=== PATIENT | male | born 1980 | race Caucasian/White ===

== ENCOUNTER 2020-07-06 13:56 | Observation (INO) | payer BC ==
[2020-07-06] MEDS ORDERED: NITROGLYCERIN OINT 1 INCH/GM PACKET TOPICAL STA (14:29)
[2020-07-06] MEDS ORDERED: ASPIRIN 81 MG PO STA (14:29)
--- NOTE | 2020-07-06 14:32 | ED ---
General Adult HPI - General Chief complaint: Chest Pain Stated complaint: Chest pain Time Seen by Provider: 07/06/20 14:13 Source: patient, RN notes reviewed Mode of arrival: ambulatory Limitations: no limitations - History of Present Illness Initial comments: Patient is a pleasant 39-year-old male presenting to the emergency department complaints of chest discomfort. Onset of symptoms was several days ago. Symptoms have been somewhat waxing and waning. Discomfort is exertional. Patient also has some mild exertional dyspnea. No nausea. No diaphoresis. Discomfort feels like pressure or tightness in the chest without radiation. No history of similar symptoms previously. No leg pain or leg swelling. - Related Data Home Medications Medication Instructions Recorded Confirmed Citalopram Hydrobromide [CeleXA] 40 mg PO DAILY 07/06/20 07/06/20 Lisinopril [Prinivil] 10 mg PO DAILY 07/06/20 07/06/20 Omeprazole 20 mg PO AC-BRKFST 07/06/20 07/06/20 metFORMIN HCL [Glucophage] 500 mg PO AC-BID 07/06/20 07/06/20 Allergies Allergy/AdvReac Type Severity Reaction Status Date / Time No Known Allergies Allergy Verified 07/06/20 15:19 Review of Systems ROS Statement: Those systems with pertinent positive or pertinent negative responses have been documented in the HPI. ROS Other: All systems not noted in ROS Statement are negative. Constitutional: Denies: fever Eyes: Denies: eye pain ENT: Denies: ear pain Respiratory: Reports: as per HPI. Denies: cough Cardiovascular: Reports: as per HPI, chest pain Endocrine: Reports: fatigue Gastrointestinal: Denies: abdominal pain Genitourinary: Denies: dysuria Musculoskeletal: Denies: back pain Skin: Denies: rash Neurological: Denies: weakness Past Medical History Past Medical History: Hypertension Additional Past Medical History / Comment(s): pre diabetic. History of Any Multi-Drug Resistant Organisms: None Reported Additional Past Surgical History / Comment(s): umbilical hernia. Past Psychological History: Anxiety Smoking Status: Never smoker Past Alcohol Use History: None Reported Past Drug Use History: None Reported General Exam Limitations: no limitations General appearance: alert, in no apparent distress Head exam: Present: normocephalic Eye exam: Present: normal appearance Neck exam: Present: normal inspection Respiratory exam: Present: normal lung sounds bilaterally. Absent: chest wall tenderness Cardiovascular Exam: Present: regular rate, normal rhythm Expanded Peripheral pulses: 2+: Radial (R), Radial (L), Posterior Tibialis (R), Posterior Tibialis (L) GI/Abdominal exam: Present: soft. Absent: tenderness Extremities exam: Present: normal inspection. Absent: pedal edema, calf tenderness Neurological exam: Present: alert Psychiatric exam: Present: normal affect, normal mood Skin exam: Present: normal color Course Vital Signs 07/06/20 14:01 Temperature 98.3 F Pulse Rate 83 Respiratory 18 Rate Blood Pressure 148/94 O2 Sat by Pulse 98 Oximetry EKG Findings - EKG Comments: EKG Findings:: Normal sinus rhythm with a rate of 61. MT 122. QRS 94. QT 402. QTC 404. Normal axis. Normal QRS. No acute ST change. Medical Decision Making - Medical Decision Making Patient reevaluated and symptom-free following a glycerin. Patient and family updated on results and plan. Case was discussed with Dr. Cody, who will admit covering hospital call. - Lab Data Result diagrams: 07/06/20 14:46 07/06/20 14:46 Lab Results 07/06/20 07/06/20 07/06/20 Range/Units 14:46 14:46 14:46 WBC 9.2 (3.8-10.6) k/uL RBC 5.19 (4.30-5.90) m/uL Hgb 16.3 (13.0-17.5) gm/dL Hct 47.0 (39.0-53.0) % MCV 90.7 (80.0-100.0) fL MCH 31.4 (25.0-35.0) pg MCHC 34.7 (31.0-37.0) g/dL RDW 12.4 (11.5-15.5) % Plt Count 289 (150-450) k/uL MPV 6.8 Neutrophils % 82 % Lymphocytes % 12 % Monocytes % 5 % Eosinophils % 0 % Basophils % 0 % Neutrophils # 7.6 (1.3-7.7) k/uL Lymphocytes # 1.1 (1.0-4.8) k/uL Monocytes # 0.4 (0-1.0) k/uL Eosinophils # 0.0 (0-0.7) k/uL Basophils # 0.0 (0-0.2) k/uL PT 10.0 (9.0-12.0) sec INR 0.9 (<1.2) APTT 21.9 L (22.0-30.0) sec D-Dimer 0.26 (<0.60) mg/L FEU Sodium 140 (137-145) mmol/L Potassium 4.2 (3.5-5.1) mmol/L Chloride 101 (98-107) mmol/L Carbon Dioxide 28 (22-30) mmol/L Anion Gap 11 mmol/L BUN 9 (9-20) mg/dL Creatinine 0.77 (0.66-1.25) mg/dL Est GFR (CKD-EPI)AfAm >90 (>60 ml/min/1.73 sqM) Est GFR (CKD-EPI)NonAf >90 (>60 ml/min/1.73 sqM) Glucose 109 H (74-99) mg/dL Calcium 9.9 (8.4-10.2) mg/dL Magnesium 1.8 (1.6-2.3) mg/dL Total Bilirubin 0.6 (0.2-1.3) mg/dL AST 40 (17-59) U/L ALT 69 H (4-49) U/L Alkaline Phosphatase 59 (38-126) U/L Troponin I (0.000-0.034) ng/mL NT-Pro-B Natriuret Pep pg/mL Total Protein 7.9 (6.3-8.2) g/dL Albumin 5.0 (3.5-5.0) g/dL 07/06/20 07/06/20 Range/Units 14:46 14:46 WBC (3.8-10.6) k/uL RBC (4.30-5.90) m/uL Hgb (13.0-17.5) gm/dL Hct (39.0-53.0) % MCV (80.0-100.0) fL MCH (25.0-35.0) pg MCHC (31.0-37.0) g/dL RDW (11.5-15.5) % Plt Count (150-450) k/uL MPV Neutrophils % % Lymphocytes % % Monocytes % % Eosinophils % % Basophils % % Neutrophils # (1.3-7.7) k/uL Lymphocytes # (1.0-4.8) k/uL Monocytes # (0-1.0) k/uL Eosinophils # (0-0.7) k/uL Basophils # (0-0.2) k/uL PT (9.0-12.0) sec INR (<1.2) APTT (22.0-30.0) sec D-Dimer (<0.60) mg/L FEU Sodium (137-145) mmol/L Potassium (3.5-5.1) mmol/L Chloride (98-107) mmol/L Carbon Dioxide (22-30) mmol/L Anion Gap mmol/L BUN (9-20) mg/dL Creatinine (0.66-1.25) mg/dL Est GFR (CKD-EPI)AfAm (>60 ml/min/1.73 sqM) Est GFR (CKD-EPI)NonAf (>60 ml/min/1.73 sqM) Glucose (74-99) mg/dL Calcium (8.4-10.2) mg/dL Magnesium (1.6-2.3) mg/dL Total Bilirubin (0.2-1.3) mg/dL AST (17-59) U/L ALT (4-49) U/L Alkaline Phosphatase (38-126) U/L Troponin I <0.012 (0.000-0.034) ng/mL NT-Pro-B Natriuret Pep 69 pg/mL Total Protein (6.3-8.2) g/dL Albumin (3.5-5.0) g/dL - Radiology Data Radiology results: image reviewed Disposition Clinical Impression: Chest pain Disposition: ADMITTED IP TO THIS [facility] Is patient prescribed a controlled substance at d/c from ED?: No Referrals: Nonstaff,Physician [REFERRING] - 1-2 days Decision Time: 16:15
[2020-07-06 15:16] LABS: Basophils % (A) 0 %; Eosinophils % (A) 0 %; HGB 16.3 gm/dL (13.0-17.5); Lymphocytes # (A) 1.1 k/uL (1.0-4.8); Lymphocytes % (A) 12 %; MCH 31.4 pg (25.0-35.0); MCHC 34.7 g/dL (31.0-37.0); MCV 90.7 fL (80.0-100.0); Mean Platelet Volume 6.8; Monocytes # (A) 0.4 k/uL (0-1.0); Monocytes % (A) 5 %; Neutrophils # (A) 7.6 k/uL (1.3-7.7); Neutrophils % (A) 82 %; Platelet Count 289 k/uL (150-450); RBC 5.19 m/uL (4.30-5.90); RDW 12.4 % (11.5-15.5); WBC 9.2 k/uL (3.8-10.6)
[2020-07-06 15:29] LABS: ALT 69 U/L (4-49); AST 40 U/L (17-59); African American GFR (CKD) >90 (>60 ml/min/1.73 sqM); Alkaline Phosphatase 59 U/L (38-126); Anion Gap 11 mmol/L; Blood Urea Nitrogen 9 mg/dL (9-20); Calcium 9.9 mg/dL (8.4-10.2); Carbon Dioxide 28 mmol/L (22-30); Chloride 101 mmol/L (98-107); Glucose 109 mg/dL (74-99); Magnesium 1.8 mg/dL (1.6-2.3); Non-African American GFR(CKD) >90 (>60 ml/min/1.73 sqM); Potassium 4.2 mmol/L (3.5-5.1); Sodium 140 mmol/L (137-145); Total Bilirubin 0.6 mg/dL (0.2-1.3); Total Protein 7.9 g/dL (6.3-8.2)
[2020-07-06 15:45] LABS: D-Dimer 0.26 mg/L FEU (<0.60); INR 0.9 (<1.2); Partial Thromboplastin Time 21.9 sec (22.0-30.0)
[2020-07-06] MEDS ORDERED: NITROGLYCERIN SL TABS 0.4 MG TAB SUBLINGUAL PRN (16:15)
[2020-07-06 16:41] VITALS: RESP 16
--- NOTE | 2020-07-06 16:50 | XR ---
EXAMINATION TYPE: XR chest 2V DATE OF EXAM: 07/06/2020 CLINICAL HISTORY: Chest Pain. TECHNIQUE: Frontal and lateral view of the chest. COMPARISON: None FINDINGS: The cardiomediastinal silhouette is within normal limits for size. Pulmonary vasculature i s normal. There is no focal air space opacity. No pleural effusion. No pneumothorax seen. No acute d isplaced osseous fracture. IMPRESSION: No acute cardiopulmonary process.
[2020-07-06] MEDS ORDERED: MORPHINE SULFATE 4 MG/ML SYRINGE IVP STA (17:04)
[2020-07-06 20:41] LABS: Glucose,Whole Blood 121 mg/dL (75-99)
[2020-07-06] MEDS: NITROGLYCERIN OINT 1 INCH/GM PACKET TOPICAL SCH (20:43)
[2020-07-06] MEDS: ACETAMINOPHEN TAB 325 MG TAB PO PRN (20:43)
--- NOTE | 2020-07-06 23:18 | P.HPIM ---
History of Present Illness This is a pleasant 39 years old male with past medical history of hypertension. Presents because of chest pain of 3 days' duration, chest pain is central nonradiating although sometimes he reports going to the left side, his about 3- 4/10 in severity, patient noticed improvement in his chest pain with deep breathing, felt like pressure and tightness associated with little, but no phlegm, no dyspnea. Patient feels lightheadedness and little fatigue Also he has sinus congestions with little headache in the morning, He denies smoking, alcohol or illicit tracts but he chews tobacco Hemodynamically stable, labs reviewed. D-dimer -0.06 Patient is started on aspirin 325 mg and cardiology team consult Past Medical History Past Medical History: Hypertension Additional Past Medical History / Comment(s): pre diabetic. History of Any Multi-Drug Resistant Organisms: None Reported Additional Past Surgical History / Comment(s): umbilical hernia. Past Psychological History: Anxiety Smoking Status: Never smoker Past Alcohol Use History: None Reported Past Drug Use History: None Reported Medications and Allergies Home Medications Medication Instructions Recorded Confirmed Type Citalopram Hydrobromide [CeleXA] 40 mg PO DAILY 07/06/20 07/06/20 History Lisinopril [Prinivil] 10 mg PO DAILY 07/06/20 07/06/20 History Omeprazole 20 mg PO AC-BRKFST 07/06/20 07/06/20 History metFORMIN HCL [Glucophage] 500 mg PO AC-BID 07/06/20 07/06/20 History Allergies Allergy/AdvReac Type Severity Reaction Status Date / Time No Known Allergies Allergy Verified 07/06/20 15:19 Physical Exam Vitals: Vital Signs Temp Pulse Resp BP Pulse Ox 07/06/20 16:40 80 16 142/87 98 07/06/20 14:01 98.3 F 83 18 148/94 98 Intake and Output 07/06/20 07/06/20 07/06/20 06:59 14:59 22:59 Other: Weight 97.522 kg Results CBC & Chem 7: 07/06/20 14:46 07/06/20 14:46 Labs: Abnormal Lab Results - Last 24 Hours (Table) 07/06/20 07/06/20 Range/Units 14:46 14:46 APTT 21.9 L (22.0-30.0) sec Glucose 109 H (74-99) mg/dL ALT 69 H (4-49) U/L Assessment and Plan Assessment: Chest pain, rule out cardiac causes Plan: This is a pleasant 39 years old male who presents with chest pain. We'll do serial troponins, cardiology consult. Continue with aspirin. Labs and medication were reviewed.. Continue same treatment. Continue with symptomatic treatment. Resume home medication. Monitor lytes and vitals. DVT and GI prophylaxis. Further recommendationsas per clinical course of the patient DVT prophylaxis: Subcutaneous heparin GI Prophylaxis: Pepcid Prognosis is guarded
[2020-07-07] MEDS: NITROGLYCERIN OINT 1 INCH/GM PACKET TOPICAL SCH (03:33)
[2020-07-07] MEDS: ACETAMINOPHEN TAB 325 MG TAB PO PRN (07:13)
[2020-07-07 07:19] LABS: Glucose,Whole Blood 128 mg/dL (75-99)
[2020-07-07] MEDS ORDERED: metFORMIN 500 MG TAB PO SCH (07:30)
[2020-07-07] MEDS: INSULIN ASPART (NovoLOG) 100 UNIT/ML VIAL SQ SCH ×2 (08:09→12:19)
[2020-07-07] MEDS ORDERED: CITALOPRAM HYDROBROMIDE 20 MG TAB PO SCH (09:00)
[2020-07-07] MEDS ORDERED: lisinopriL 10 MG TAB PO SCH (09:00)
[2020-07-07] MEDS ORDERED: ATORVASTATIN 40 MG TAB PO SCH (09:00)
[2020-07-07] MEDS ORDERED: ASPIRIN 325 MG TAB PO SCH (09:00)
--- NOTE | 2020-07-07 10:20 | P.CRDCN ---
History of Present Illness History of present illness: HISTORY OF PRESENTING ILLNESS This is a pleasant 39-year-old male past medical history significant for hypertension, diabetes mellitus, gastroesophageal reflux disease and depression. He denies prior history of coronary artery disease and does not follow in the office with a spiral weaver. We have been asked to see in consultation for chest pain. He states for the previous one week he has been experiencing episodes of chest discomfort in the midsternal and left precordial region. The discomfort is described as a tight squeezing sensation. The discomfort seems to be exacerbated it activity and is associated with mild shortness of breath. He also feels as though he has been more fatigued recently. He states the discomfort has not gotten too intense because every time it happens he stops what he is doing and rest and the symptoms improved. He initially presented to an urgent care and was sent to the ER for further evaluation. Since arriving at the emergency department he has had no further symptoms of chest discomfort however he has not been up and moving. DIAGNOSTICS EKG reveals sinus mechanism heart rate of [address] or T wave abnormalities noted. Telemetry tracings indicate sinus mechanism with no arrhythmia. Chest xray negative for acute cardiopulmonary process. Laboratory reviewed, cardiac enzymes negative 3, CBC unremarkable, d-dimer 0.26, sodium 140, potassium 4.2, creatinine 0.77, magnesium 1.8 and NT proBNP 69. Current cardiac medications include lisinopril 10 mg daily. REVIEW OF SYSTEMS At the time of my exam: CONSTITUTIONAL: Denies fever or chills. CARDIOVASCULAR: Denies chest pain, shortness of breath, orthopnea, PND or palpitations. RESPIRATORY: Denies cough. GASTROINTESTINAL: Denies abdominal pain, diarrhea, constipation, nausea or vomiting. MUSCULOSKELETAL: Denies myalgias. NEUROLOGIC: Denies numbness, tingling, headacbe or weakness. ENDOCRINE: Denies fatigue, weight change, polydipsia or polyurina. GENITOURINARY: Denies burning, hematuria or urgency with micturation. HEMATOLOGIC: Denies history of anemia or bleeding. PHYSICAL EXAMINATION Blood pressure 115/69 heart rate 62 afebrile and maintaining oxygen saturation on room air. CONSTITUTIONAL: No apparent distress. HEENT: Head is normocephalic. Pupils are equal, round. Sclerae anicteric. Mucous membranes of the mouth are moist. No JVD. No carotid bruit. CHEST EXAMINATION: Lungs are clear to auscultation. No chest wall tenderness is noted on palpation or with deep breathing. HEART EXAMINATION: Regular rate and rhythm. S1, S2 heard. No murmurs, gallops or rub. ABDOMEN: Soft, nontender. Positive bowel sounds. EXTREMITIES: 2+ peripheral pulses, no lower extremity edema and no calf tenderness. NEUROLOGIC EXAMINATION: Patient is awake, alert and oriented x3. ASSESSMENT Chest pain Unstable angina Hypertension Diabetes mellitus PLAN An acute coronary event has been ruled out. Given his history of diabetes, initiate atorvastatin 40 mg daily. Obtain 2D echocardiogram and doppler study to assess cardiac structure and function. Discussed both options of stress test vs catheterization in detail with the patient. He would prefer the less invasive stress test to start. This is reasonable given his normal EKG and cardiac enzymes. Perform stress echocardiogram to assess for stress induced ischemia. If abnormal we will consider coronary angiography. If testing is normal he can be discharged home to follow up with Dr. Bey in the office. Thank you kindly for this consultation. Nurse Practitioner note has been reviewed, I agree with a documented findings and plan of care. Patient was seen and examined. Past Medical History Past Medical History: Hypertension Additional Past Medical History / Comment(s): pre diabetic. History of Any Multi-Drug Resistant Organisms: None Reported Additional Past Surgical History / Comment(s): umbilical hernia. Past Psychological History: Anxiety Smoking Status: Never smoker Past Alcohol Use History: None Reported Past Drug Use History: None Reported Medications and Allergies Home Medications Medication Instructions Recorded Confirmed Type Citalopram Hydrobromide [CeleXA] 40 mg PO DAILY 07/06/20 07/06/20 History Lisinopril [Prinivil] 10 mg PO DAILY 07/06/20 07/06/20 History Omeprazole 20 mg PO AC-BRKFST 07/06/20 07/06/20 History metFORMIN HCL [Glucophage] 500 mg PO AC-BID 07/06/20 07/06/20 History Allergies Allergy/AdvReac Type Severity Reaction Status Date / Time No Known Allergies Allergy Verified 07/06/20 15:19 Physical Exam Vitals: Vital Signs Temp Pulse Pulse Resp BP BP Pulse Ox 07/07/20 06:50 98.2 F 62 16 115/69 95 07/07/20 02:00 60 07/07/20 01:44 98.0 F 60 118/69 97 07/06/20 20:00 98.5 F 58 L 16 131/72 97 07/06/20 19:20 58 L 07/06/20 19:08 98.1 F 07/06/20 16:50 58 L 16 109/73 95 07/06/20 16:40 70 24 111/75 97 07/06/20 16:30 59 L 11 L 116/81 95 07/06/20 16:20 59 L 14 116/81 96 07/06/20 16:10 58 L 12 119/77 96 07/06/20 16:00 63 15 124/83 96 07/06/20 15:50 64 11 L 124/83 96 07/06/20 15:40 59 L 10 L 119/75 96 07/06/20 15:30 61 13 133/87 95 07/06/20 15:20 66 18 133/87 97 07/06/20 14:43 19 07/06/20 14:01 98.3 F 83 18 148/94 98 Intake and Output 07/06/20 07/07/20 07/07/20 22:59 06:59 14:59 Intake Total 0 Balance 0 Intake: Oral 0 Other: Voiding Method Toilet Toilet Toilet # Voids 1 Weight 97.522 kg Results 07/06/20 14:46 07/06/20 14:46 Cardiac Enzymes 07/06/20 07/06/20 07/06/20 Range/Units 14:46 14:46 19:10 AST 40 (17-59) U/L Troponin I <0.012 <0.012 (0.000-0.034) ng/mL 07/06/20 Range/Units 22:36 AST (17-59) U/L Troponin I <0.012 (0.000-0.034) ng/mL Coagulation 07/06/20 Range/Units 14:46 PT 10.0 (9.0-12.0) sec APTT 21.9 L (22.0-30.0) sec CBC 07/06/20 Range/Units 14:46 WBC 9.2 (3.8-10.6) k/uL RBC 5.19 (4.30-5.90) m/uL Hgb 16.3 (13.0-17.5) gm/dL Hct 47.0 (39.0-53.0) % Plt Count 289 (150-450) k/uL Comprehensive Metabolic Panel 07/06/20 Range/Units 14:46 Sodium 140 (137-145) mmol/L Potassium 4.2 (3.5-5.1) mmol/L Chloride 101 (98-107) mmol/L Carbon Dioxide 28 (22-30) mmol/L BUN 9 (9-20) mg/dL Creatinine 0.77 (0.66-1.25) mg/dL Glucose 109 H (74-99) mg/dL Calcium 9.9 (8.4-10.2) mg/dL AST 40 (17-59) U/L ALT 69 H (4-49) U/L Alkaline Phosphatase 59 (38-126) U/L Total Protein 7.9 (6.3-8.2) g/dL Albumin 5.0 (3.5-5.0) g/dL Current Medications Generic Name Dose Route Start Last Admin Trade Name Freq PRN Reason Stop Dose Admin Acetaminophen 650 mg 07/06/20 16:15 07/07/20 07:13 Acetaminophen Tab 325 Mg Tab PO 650 mg Q4HR PRN Administration Mild Pain Aspirin 325 mg 07/07/20 09:00 Aspirin 325 Mg Tab PO DAILY [facility] Citalopram Hydrobromide 40 mg 07/07/20 09:00 Citalopram Hydrobromide 20 Mg Tab PO DAILY [facility] Insulin Aspart 0 unit 07/07/20 07:30 Insulin Aspart (Novolog) 100 Unit/Ml Vial SQ ACHS [facility] Protocol Lisinopril 10 mg 07/07/20 09:00 Lisinopril 10 Mg Tab PO DAILY [facility] Metformin HCl 500 mg 07/07/20 07:30 Metformin 500 Mg Tab PO AC-BID ELEAZAR Nitroglycerin 0.4 mg 07/06/20 16:15 Nitroglycerin Sl Tabs 0.4 Mg Tab SUBLINGUAL Q5M PRN Chest Pain Nitroglycerin 1 inch 07/06/20 21:00 07/07/20 03:33 Nitroglycerin Oint 1 Inch/Gm Packet TOPICAL 1 inch Q6H ELEAZAR Administration Sodium Chloride 10 ml 07/06/20 21:00 07/06/20 20:43 Sodium Chloride 0.9% Flush 10 Ml Syringe IV 10 ml BID ELEAZAR Administration Intake and Output 05/3107/07/20 07/07/20 22:59 06:59 14:59 Intake Total 0 Balance 0 Intake: Oral 0 Other: Voiding Method Toilet Toilet Toilet # Voids 1 Weight 97.522 kg 07/06/20 14:46 07/06/20 14:46
[2020-07-07 11:05] LABS: Chol/HDL Ratio 3.41
--- NOTE | 2020-07-07 12:06 | ECHOF ---
Referral Reason:cp MEASUREMENTS -------- HEIGHT: 188.0 cm WEIGHT: 97.5 kg BP: 115/69 RVIDd: 3.6 cm (< 3.3) IVSd: 1.3 cm (0.6 - 1.1) LVIDd: 4.8 cm (3.9 - 5.3) LVPWd: 1.1 cm (0.6 - 1.1) IVSs: 1.6 cm LVIDs: 3.1 cm LVPWs: 1.8 cm LAESV Index (A-L): 31.43 ml/m Ao Diam: 3.0 cm (2.0 - 3.7) AV Cusp: 1.8 cm (1.5 - 2.6) LA Diam: 3.9 cm (2.7 - 3.8) MV EXCURSION: 21.333 mm (> 18.000) MV EF SLOPE: 111 mm/s (70 - 150) EPSS: 0.4 cm MV E Star: 0.66 m/s MV DecT: 203 ms MV A Star: 0.52 m/s MV E/A Ratio: 1.26 RAP: 5.00 mmHg RVSP: 30.58 mmHg FINDINGS -------- Sinus rhythm. This was a technically adequate study. The left ventricular size is normal. There is mild concentric left ventricular hypertrophy. Overa ll left ventricular systolic function is normal with, an EF between 55 - 60 %. The diastolic fillin g pattern is normal for the age of the patient 8.67. The right ventricle is mildly enlarged. LA is midly dilated 29-33ml/m2. The right atrial size is normal. Interatrial and interventricular septum intact. The aortic valve is trileaflet and appears structurally normal. There is no evidence of aortic regu rgitation. There is no evidence of aortic stenosis. Mild mitral regurgitation is present. Mild tricuspid regurgitation present. There is borderline pulmonary artery hypertension. The righ t ventricular systolic pressure, as measured by Doppler, is 30.58mmHg. Trace/mild (physiologic) pulmonic regurgitation. The aortic root size is normal. IVC Not well visulized. There is no pericardial effusion. CONCLUSIONS -------- 1. The left ventricular size is normal. 2. There is mild concentric left ventricular hypertrophy. 3. Overall left ventricular systolic function is normal with, an EF between 55 - 60 %. 4. The diastolic filling pattern is normal for the age of the patient 8.67 5. The right ventricle is mildly enlarged. 6. LA is midly dilated 29-33ml/m2. 7. Mild mitral regurgitation is present. 8. Mild tricuspid regurgitation present. 9. There is borderline pulmonary artery hypertension. 10. The right ventricular systolic pressure, as measured by Doppler, is 30.58mmHg. 11. Trace/mild (physiologic) pulmonic regurgitation. OUTSOLE FLEXER: Danika Cloud RDCS
[2020-07-07 12:16] LABS: Glucose,Whole Blood 116 mg/dL (75-99)
--- NOTE | 2020-07-07 14:00 | ECHOS ---
STRESS ECHOCARDIOGRAM LUMASON: N/A Vial INDICATIONS: Chest pain. MEDICATIONS: BASELINE HEART RATE: 72 BASELINE BLOOD PRESSURE: 140/82 MAXIMUM HEART RATE: 166 MAXIMUM BLOOD PRESSURE: 183/87 85% MPHR: 153 100% MPHR: 180 METS: 9.7 MAXIMUM STAGE REACHED: III TOTAL EXERCISE TIME: 9:00 RESULTS: Baseline EKG shows sinus rhythm, normal axis, normal intervals. Patient exercised on Jose Maria protocol for a total of 9 minutes achieving 10 METS, 97% of predicted maximal heart rate without chest pain or diagnostic ST-segment depression. Baseline echo shows normal left ventricular size, wall motion and systolic function. Postexercise, there is normal hyperdynamic response of all segments of myocardium noted. CONCLUSIONS: 1. Good exercise tolerance. 2. Negative stress test by EKG criteria. 3. Negative stress echo. MMODL / IJN: [id number] /
[2020-07-07 14:37] VITALS: BP 144/83; PULSE 64; TEMP 98.1
--- NOTE | 2020-07-07 21:16 | P.DS ---
Providers Date of admission: 07/06/20 16:15 Attending physician: Chelsey Cody Consults: 07/06/20 16:15 Consult Physician Urgent Consulting Provider: Ray Lam Consult Reason/Comments: cp Do you want consulting provider notified?: Yes Primary care physician: Alonso Diaz Hospital Course: Diagnoses: Chest pain, negative stress test and started to cause a prescription ruled out. D-dimer is negative at 0.26 Hospital course: Hospital course: This is a pleasant 39 years old male with past medical history of hypertension. Presents because of chest pain of 3 days' duration, chest pain is central nonradiating although sometimes he reports going to the left side, his about 3- 4/10 in severity, patient noticed improvement in his chest pain with deep breathing, felt like pressure and tightness associated with little, but no phlegm, no dyspnea. Patient feels lightheadedness and little fatigue. Next the on the day of discharge his symptoms are completely resolved he says that his chest pain is 0/10, and all other symptoms above has resolved. He denies dyspnea, no abdominal pain. No change in urine or bowel habits. No fever Hemodynamically stable, labs reviewed. 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 Patient was instructed to follow up with PCP dr. diaz within one week and patient agrees Patient was instructed to follow up with supervisor painting shipyard Dr. Bey in 1-2 weeks and he agrees to make an appointment Physical exam Gen: patient is a AAOx3, no distress CVS: S1-S2, RRR, no murmur Lungs: B/L CTA, no wheezing Abdomen: soft, no distention, no tenderness, positive bowel sounds Extremity: no leg edema or induration Time spent more than 35 minutes Plan - Discharge Summary New Discharge Prescriptions: New Atorvastatin [Lipitor] 40 mg PO DAILY #30 tab Nitroglycerin Sl Tabs [Nitrostat] 0.4 mg SUBLINGUAL Q5M PRN #10 tab PRN Reason: Chest Pain Acetaminophen Tab [Tylenol] 650 mg PO Q4HR PRN tab PRN Reason: Mild Pain Continue metFORMIN HCL [Glucophage] 500 mg PO AC-BID Lisinopril [Prinivil] 10 mg PO DAILY Citalopram Hydrobromide [CeleXA] 40 mg PO DAILY Omeprazole 20 mg PO AC-BRKFST Discharge Medication List Citalopram Hydrobromide [CeleXA] 40 mg PO DAILY 07/06/20 [History] Lisinopril [Prinivil] 10 mg PO DAILY 07/06/20 [History] Omeprazole 20 mg PO AC-BRKFST 07/06/20 [History] metFORMIN HCL [Glucophage] 500 mg PO AC-BID 07/06/20 [History] Acetaminophen Tab [Tylenol] 650 mg PO Q4HR PRN tab 07/07/20 [Rx] Atorvastatin [Lipitor] 40 mg PO DAILY #30 tab 07/07/20 [Rx] Nitroglycerin Sl Tabs [Nitrostat] 0.4 mg SUBLINGUAL Q5M PRN #10 tab 07/07/20 [Rx] Follow up Appointment(s)/Referral(s): Alonso Diaz MD [Primary Care Provider] - 1-2 Days (Please call the office tomorrow morning to schedule your appointment.) Manjinder Bey MD [STAFF PHYSICIAN] - 2 Weeks ([facility] will call you to schedule your follow up appointment.) Patient Instructions/Handouts: Angina (DC) Activity/Diet/Wound Care/Special Instructions: Heart healthy diet Activity is restricted till you see your doctor Discharge Disposition: HOME SELF-CARE
== END 2020-07-07 16:44 | disposition home or self-care (01) ==
LOC: EC 13:56 → 6NMEDSUR 16:15
PROVIDERS: ADMIT Hospitalist; ATTEND Hospitalist
DX: R07.89 Other chest pain (principal); I10 Essential (primary) hypertension; E11.9 Type 2 diabetes mellitus without complications; F41.9 Anxiety disorder, unspecified; R42 Dizziness and giddiness; R53.83 Other fatigue; R51.9 Headache, unspecified; K21.9 Gastro-esophageal reflux disease without esophagitis; F32.9 Major depressive disorder, single episode, unspecified; F17.220 Nicotine dependence, chewing tobacco, uncomplicated; Z20.822 Contact with and (suspected) exposure to COVID-19; Z79.84 Long term (current) use of oral hypoglycemic drugs; Z79.899 Other long term (current) drug therapy; Z87.19 Personal history of other diseases of the digestive system; Z98.890 Other specified postprocedural states
CPT/HCPCS: 93005 ×2; 99285; 36415; 93306; 93351; 85379; 83880; 80061; 80053; 83735; 84484; 85025; 85610; 85730; 87635; 71046; G0378 ×2

== ENCOUNTER 2024-04-19 22:45 | Observation (INO) | payer BC, OTHER ==
[2024-04-19] MEDS: DILTIAZEM DRIP BOLUS FROM BAG 1 MG SOLN IV ONE (23:04)
[2024-04-19] MEDS: SODIUM CHLORIDE 0.9% 1,000 ML IV STA (23:24)
[2024-04-19] MEDS: DILTIAZEM 125 MG in SODIUM CHLORIDE 0.9% 100 ML IV SCH (23:24)
--- NOTE | 2024-04-19 23:24 | XR ---
EXAMINATION TYPE: XR chest 2V DATE OF EXAM: 04/19/2024 11:20 PM COMPARISON: Chest radiographs from 07/06/2020 CLINICAL INDICATION: Male, 43 years old with history of dysrhythmia; [facility] TECHNIQUE: XR chest 2V Frontal and lateral views of the chest. FINDINGS: Lungs/Pleura: There is no evidence of pleural effusion, focal consolidation, or pneumothorax. Pulmonary vascularity: Unremarkable. Heart/mediastinum: Cardiomediastinal silhouette is unremarkable. Musculoskeletal: No acute osseous pathology. Other findings: None IMPRESSION: No acute cardiopulmonary disease/process. [facility], , 04/19/2024 11:22 PM
[2024-04-19] MEDS: ASPIRIN 81 MG PO STA (23:25)
--- NOTE | 2024-04-19 23:29 | ED ---
General Adult HPI - General Chief complaint: Arrhythmia/Palpitations Stated complaint: AFIB Time Seen by Provider: 04/19/24 22:52 Source: patient, EMS Mode of arrival: EMS Limitations: no limitations - History of Present Illness Initial comments: Patient is a pleasant 43-year-old gentleman past medical history hypertension presenting today for palpitations. Just prior to arrival patient states he stood up and suddenly felt his heart racing and felt clammy. IT did not go away on its own so he called EMS. Patient noted to be in A-fib with RVR BY EMS. Patient has no history of the same. He is not on blood thinners. No family history of arrhythmias. Patient denies chest pain or shortness of breath. Is a nonsmoker. No hx CAD. Denies illicit drug use, alcohol use, recent fevers or chills or recent illness. - Related Data Home Medications Medication Instructions Recorded Confirmed Citalopram Hydrobromide [CeleXA] 40 mg PO DAILY 07/06/20 07/06/20 Omeprazole 20 mg PO AC-BRKFST 07/06/20 07/06/20 lisinopriL [Prinivil] 10 mg PO DAILY 07/06/20 07/06/20 metFORMIN HCL [Glucophage] 500 mg PO AC-BID 07/06/20 07/06/20 Previous Rx's Medication Instructions Recorded Acetaminophen Tab [Tylenol] 650 mg PO Q4HR PRN tab 07/07/20 Atorvastatin [Lipitor] 40 mg PO DAILY #30 tab 07/07/20 Nitroglycerin Sl Tabs [Nitrostat] 0.4 mg SUBLINGUAL Q5M PRN #10 tab 07/07/20 Allergies Allergy/AdvReac Type Severity Reaction Status Date / Time No Known Allergies Allergy Verified 04/19/24 22:53 Review of Systems ROS Statement: Those systems with pertinent positive or pertinent negative responses have been documented in the HPI. ROS Other: All systems not noted in ROS Statement are negative. Past Medical History Past Medical History: Hypertension Additional Past Medical History / Comment(s): pre diabetic. History of Any Multi-Drug Resistant Organisms: None Reported Additional Past Surgical History / Comment(s): umbilical hernia. Past Psychological History: Anxiety Smoking Status: Never smoker Past Alcohol Use History: None Reported Past Drug Use History: None Reported General Exam - General Exam Comments Initial Comments: PE: CONSTITUTIONAL: [no apparent distress, well appearing] SKIN: [warm, dry, no jaundice, hives or petechiae] EYES:[ pupils are equally round, extraocular movements intact without nystagmus, clear conjunctiva, non-icteric sclera] HENT: [normocephalic, atraumatic, moist mucus membranes, oropharynx clear without exudates] NECK: , [Full range of motion, normal appearance] PULMONARY: [clear to auscultation without wheezes, rhonchi, or rales, normal excursion, no accessory muscle use and no stridor] CARDIOVASCULAR:[Irregularly irregular rate and rhythm, tachycardia, normal S1 and S2. No appreciated murmurs, rubs or gallops. Strong radial pulses with intact distal perfusion. No lower extremity edema] GASTROINTESTINAL: [soft, active bowel sounds throughout, non-tender, non- distended, no palpable masses, no rebound or guarding. No hepatosplenomegaly] GENITOURINARY: MUSCULOSKELETAL: [Extremities have no gross deformity, no edema, redness, or swelling. No calf swelling ] NEUROLOGIC: [_a/o x 3, GCS 15, normal mentation and speech. Moves all extremities x 4 without motor or sensory deficit] PSYCHIATRIC:[ _normal mood and affect, thought process is clear and linear] Limitations: no limitations Course Vital Signs 04/19/24 04/19/24 04/19/24 22:50 23:27 23:51 Temperature 97.0 F L Pulse Rate 158 H 101 H 92 Respiratory 18 18 15 Rate Blood Pressure 174/111 125/87 136/88 O2 Sat by Pulse 97 92 L 96 Oximetry 04/20/24 04/20/24 04/20/24 00:00 00:15 00:49 Temperature Pulse Rate 86 82 96 Respiratory 15 18 16 Rate Blood Pressure 136/88 142/87 126/92 O2 Sat by Pulse 94 L 95 96 Oximetry 04/20/24 04/20/24 04/20/24 01:09 02:10 04:25 Temperature Pulse Rate 93 73 71 Respiratory 18 16 15 Rate Blood Pressure 109/74 116/80 105/81 O2 Sat by Pulse 96 95 95 Oximetry 04/20/24 05:14 Temperature Pulse Rate 62 Respiratory 17 Rate Blood Pressure 106/77 O2 Sat by Pulse 95 Oximetry - Reevaluation(s) Reevaluation #1: Rate improved with 20 mg Cardizem administration, currently 101, will give oral Cardizem and keep on drip 04/19/24 23:29 EKG Findings - EKG Comments: EKG Findings:: A-fib with RVR, rate 144 bpm QT/QTc 303/386 ms, normal axis, no significant ST depressions or elevations Medical Decision Making - Medical Decision Making Was pt. sent in by a medical professional or institution (, PA, YARDING AND FOLDING MACHINE OPERATOR, urgent care, hospital, or fci...) When possible be specific @ -No Did you speak to anyone other than the patient for history (EMS, parent, family, police, friend...)? What history was obtained from this source @ -No Did you review nursing and triage notes (agree or disagree)? Why? @ -I reviewed nursing and triage notes Were old charts reviewed (outside hosp., previous admission, EMS record, old EKG, old radiological studies, urgent care reports/EKG's, fci records)? Report findings @ -Medical records reviewed-Reviewed discharge summary from when patient was admitted 07/06/2020 for chest pain, stress test during done done during that admission was negative Differential Diagnosis (chest pain, altered mental status, abdominal pain women, abdominal pain men, vaginal bleeding, weakness, fever, dyspnea, syncope, headache, dizziness, GI bleed, back pain, seizure, CVA, palpatations, mental health, musculoskeletal)? @Differential Palpitations Ventricular arrhythmias, atrial arrhythmias, myocardial infarction, anemia, thyrotoxicosis, electrolyte imbalance, hypokalemia, pulmonary disease, drugs, alcohol, anxiety, stress.... This is not meant to be an all-inclusive list. EKG interpreted by me (3pts min.). @ -As above X-rays interpreted by me (1pt min.). @I personally viewed chest x-ray see no evidence of cardiomegaly, consolidations pleural effusions or pneumothorax CT interpreted by me (1pt min.). @ -None done U/S interpreted by me (1pt. min.). @ -None done What testing was considered but not performed or refused? (CT, X-rays, U/S, labs)? Why? @ -None What meds were considered but not given or refused? Why? @ -None Did you discuss the management of the patient with other professionals (professionals i.e. , PA, YARDING AND FOLDING MACHINE OPERATOR, lab, RT, psych nurse, oncology social work, in mold coater, teacher, control systems drafting officer, mattress spring encaser)? Give summary @ -No Was smoking cessation discussed for >3mins.? @ -No Was critical care preformed (if so, how long)? @Yes 35 minutes Were there social determinants of health that impacted care today? How? (Homelessness, low income, unemployed, alcoholism, drug addiction, transp ortation, low edu. Level, literacy, decrease access to med. care, residential, rehab)? @ -No Was there de-escalation of care discussed even if they declined (Discuss DNR or withdrawal of care, Hospice)? @ -No What co-morbidities impacted this encounter? (DM, HTN, Smoking, COPD, CAD, Cancer, CVA, ARF, Chemo, Hep., AIDS, mental health diagnosis, sleep apnea, morbid obesity)? @Hypertension Was patient admitted / discharged? Hospital course, mention meds given and route, prescriptions, significant lab abnormalities, going to OR and other pertinent info. @ -Admission-this is a pleasant 43-year-old on presenting for palpitations. No history A-fib, not on blood thinners. Symptoms started just prior to arrival. On arrival is in A-fib RVR with stable blood pressure. Gave 20 mg Cardizem bolus and started on Cardizem drip at 5 mg/hr. Rate became controlled. Patient was given 30 mg oral Cardizem and Cardizem drip was turned off 1 hour later with continued rate control. Due to a [id number] of 2 patient was started on heparin drip and will be admitted for cardiology consultation. Patient agreea ble w/ plan of care. Labs remarkable for glucose of 283, troponin undetectable BNP undetectable. Case discussed w/ Susan, EMS, kindly accepts pt for admission. Undiagnosed new problem with uncertain prognosis? @ -No Drug Therapy requiring intensive monitoring for toxicity (Heparin, Nitro, Insuli n, Cardizem)? @ yes Heparin gtt Were any procedures done? @ -No Diagnosis/symptom? Atrial fibrillation with RVR Acute, or Chronic, or Acute on Chronic? Acute Uncomplicated (without systemic symptoms) or Complicated (systemic symptoms)? @Complicated Side effects of treatment? @ -No Exacerbation, Progression, or Severe Exacerbation? @ -No Poses a threat to life or bodily function? How? (Chest pain, [place], [place], pneumonia, PE, COPD, DKA, ARF, appy, cholecystitis, CVA, Diverticulitis, Homicidal, Suicida l, threat to staff... and all critical care pts) @ If left unaddressed could result in cardiac failure and or stroke - Lab Data Result diagrams: 04/19/24 23:26 04/19/24 23:26 Lab Results 04/19/24 04/19/24 04/19/24 Range/Units 23:26 23:26 23: WBC 9.5 (3.8-10.6) k/uL RBC 4.96 (4.30-5.90) m/uL Hgb 15.2 (13.0-17.5) gm/dL Hct 46.1 (39.0-53.0) % MCV 92.9 (80.0-100.0) fL MCH 30.6 (25.0-35.0) pg MCHC 32.9 (31.0-37.0) g/dL RDW 12.9 (11.5-15.5) % Plt Count 274 (150-450) k/uL MPV 7.3 Neutrophils % 58 % Lymphocytes % 35 % Monocytes % 4 % Eosinophils % 1 % Basophils % 0 % Neutrophils # 5.5 (1.3-7.7) k/uL Lymphocytes # 3.3 (1.0-4.8) k/uL Monocytes # 0.4 (0-1.0) k/uL Eosinophils # 0.1 (0-0.7) k/uL Basophils # 0.0 (0-0.2) k/uL PT 10.5 (10.0-12.5) sec INR 0.9 (<1.2) APTT 23.3 (22.0-30.0) sec Sodium (137-145) mmol/L Potassium (3.5-5.1) mmol/L Chloride (98-107) mmol/L Carbon Dioxide (22-30) mmol/L Anion Gap mmol/L BUN (9-20) mg/dL Creatinine (0.66-1.25) mg/dL Est GFR (CKD-EPI)AfAm (>60 ml/min/1.73 sqM) Est GFR (CKD-EPI)NonAf (>60 ml/min/1.73 sqM) Glucose (74-99) mg/dL Calcium (8.4-10.2) mg/dL Magnesium (1.6-2.3) mg/dL Total Bilirubin (0.2-1.3) mg/dL AST (17-59) U/L ALT (4-49) U/L Alkaline Phosphatase (38-126) U/L Troponin I (0.000-0.034) ng/mL NT-Pro-B Natriuret Pep pg/mL Total Protein (6.3-8.2) g/dL Albumin (3.5-5.0) g/dL TSH (0.465-4.680) mIU/L Urine Opiates Screen Not Detected (NotDetected) Ur Oxycodone Screen Not Detected (NotDetected) Urine Methadone Screen Not Detected (NotDetected) Ur Barbiturates Screen Not Detected (NotDetected) U Tricyclic Antidepress Not Detected (NotDetected) Ur Phencyclidine Scrn Not Detected (NotDetected) Ur Amphetamines Screen Not Detected (NotDetected) U Methamphetamines Scrn Not Detected (NotDetected) U Benzodiazepines Scrn Not Detected (NotDetected) Urine Cocaine Screen Not Detected (NotDetected) U Marijuana (THC) Screen Not Detected (NotDetected) 04/19/24 04/19/24 Range/Units 23:26 23:26 WBC (3.8-10.6) k/uL RBC (4.30-5.90) m/uL Hgb (13.0-17.5) gm/dL Hct (39.0-53.0) % MCV (80.0-100.0) fL MCH (25.0-35.0) pg MCHC (31.0-37.0) g/dL RDW (11.5-15.5) % Plt Count (150-450) k/uL MPV Neutrophils % % Lymphocytes % % Monocytes % % Eosinophils % % Basophils % % Neutrophils # (1.3-7.7) k/uL Lymphocytes # (1.0-4.8) k/uL Monocytes # (0-1.0) k/uL Eosinophils # (0-0.7) k/uL Basophils # (0-0.2) k/uL PT (10.0-12.5) sec INR (<1.2) APTT (22.0-30.0) sec Sodium 133 L (137-145) mmol/L Potassium 3.6 (3.5-5.1) mmol/L Chloride 98 (98-107) mmol/L Carbon Dioxide 23 (22-30) mmol/L Anion Gap 12 mmol/L BUN 18 (9-20) mg/dL Creatinine 0.76 (0.66-1.25) mg/dL Est GFR (CKD-EPI)AfAm >90 (>60 ml/min/1.73 sqM) Est GFR (CKD-EPI)NonAf >90 (>60 ml/min/1.73 sqM) Glucose 283 H (74-99) mg/dL Calcium 9.2 (8.4-10.2) mg/dL Magnesium 1.9 (1.6-2.3) mg/dL Total Bilirubin 0.5 (0.2-1.3) mg/dL AST 26 (17-59) U/L ALT 40 (4-49) U/L Alkaline Phosphatase 60 (38-126) U/L Troponin I <0.012 (0.000-0.034) ng/mL NT-Pro-B Natriuret Pep <20 pg/mL Total Protein 7.4 (6.3-8.2) g/dL Albumin 4.7 (3.5-5.0) g/dL TSH 2.190 (0.465-4.680) mIU/L Urine Opiates Screen (NotDetected) Ur Oxycodone Screen (NotDetected) Urine Methadone Screen (NotDetected) Ur Barbiturates Screen (NotDetected) U Tricyclic Antidepress (NotDetected) Ur Phencyclidine Scrn (NotDetected) Ur Amphetamines Screen (NotDetected) U Methamphetamines Scrn (NotDetected) U Benzodiazepines Scrn (NotDetected) Urine Cocaine Screen (NotDetected) U Marijuana (THC) Screen (NotDetected) Disposition Clinical Impression: Atrial fibrillation with controlled ventricular response Disposition: ADMITTED IP TO THIS [facility] Condition: Stable
[2024-04-19 23:44] LABS: Basophils % (A) 0 %; Eosinophils # (A) 0.1 k/uL (0-0.7); Eosinophils % (A) 1 %; HCT 46.1 % (39.0-53.0); HGB 15.2 gm/dL (13.0-17.5); Lymphocytes # (A) 3.3 k/uL (1.0-4.8); Lymphocytes % (A) 35 %; MCH 30.6 pg (25.0-35.0); MCHC 32.9 g/dL (31.0-37.0); MCV 92.9 fL (80.0-100.0); Mean Platelet Volume 7.3; Monocytes # (A) 0.4 k/uL (0-1.0); Monocytes % (A) 4 %; Neutrophils # (A) 5.5 k/uL (1.3-7.7); Neutrophils % (A) 58 %; Platelet Count 274 k/uL (150-450); RBC 4.96 m/uL (4.30-5.90); RDW 12.9 % (11.5-15.5); WBC 9.5 k/uL (3.8-10.6)
[2024-04-19] MEDS: DILTIAZEM ORAL 30 MG TAB PO STA (23:47)
[2024-04-19 23:48] LABS: ALT 40 U/L (4-49); AST 26 U/L (17-59); African American GFR (CKD) >90 (>60 ml/min/1.73 sqM); Albumin 4.7 g/dL (3.5-5.0); Alkaline Phosphatase 60 U/L (38-126); Anion Gap 12 mmol/L; Blood Urea Nitrogen 18 mg/dL (9-20); Calcium 9.2 mg/dL (8.4-10.2); Carbon Dioxide 23 mmol/L (22-30); Chloride 98 mmol/L (98-107); Glucose 283 mg/dL (74-99); Magnesium 1.9 mg/dL (1.6-2.3); Non-African American GFR(CKD) >90 (>60 ml/min/1.73 sqM); Potassium 3.6 mmol/L (3.5-5.1); Sodium 133 mmol/L (137-145); Total Bilirubin 0.5 mg/dL (0.2-1.3); Total Protein 7.4 g/dL (6.3-8.2)
[2024-04-19 23:58] LABS: NT-Pro-B-Type Natriuretic Pept <20 pg/mL
[2024-04-19 23:59] LABS: INR 0.9 (<1.2); Partial Thromboplastin Time 23.3 sec (22.0-30.0); Prothrombin Time 10.5 sec (10.0-12.5)
[2024-04-20 00:10] LABS: Amphetamine Screen,Urine Not Detected (NotDetected); Barbiturate Screen,Urine Not Detected (NotDetected); Benzodiazepines Screen,Urine Not Detected (NotDetected); Cocaine Screen,Urine Not Detected (NotDetected); Methadone Screen, Urine Not Detected (NotDetected); Opiate Screen,Urine Not Detected (NotDetected); Oxycodone Screen, Urine Not Detected (NotDetected); Phencyclidine Screen,Urine Not Detected (NotDetected); Tricyclic Antidepressant,Urine Not Detected (NotDetected); Urn Cannabinoid Scrn Not Detected (NotDetected)
[2024-04-20] MEDS ORDERED: ONDANSETRON 4 MG/2 ML VIAL IVP PRN (01:10)
[2024-04-20] MEDS ORDERED: ALPRAZolam 0.25 MG TAB PO PRN (01:10)
[2024-04-20] MEDS ORDERED: NALOXONE 0.4 MG/ML 1 ML VIAL IV PRN (01:10)
[2024-04-20] MEDS ORDERED: MORPHINE SULFATE 4 MG/ML SYRINGE IV PRN (01:10)
[2024-04-20] MEDS ORDERED: MAG HYDROX/AL HYDROX/SIMETH 30 ML CUP PO PRN (01:10)
[2024-04-20] MEDS ORDERED: CALCIUM CARBONATE 500 MG CHEWABLE PO PRN (01:10)
[2024-04-20] MEDS ORDERED: ACETAMINOPHEN TAB 325 MG TAB PO PRN (01:10)
[2024-04-20] MEDS: HEPARIN SODIUM 1,000 UN/ML (10ML VL) IV ONE (01:26)
[2024-04-20] MEDS: HEPARIN SOD,PORK IN 0.45% NACL 25,000 UNIT in 0.45% NACL 1 250ML.BAG IV SCH (01:27)
[2024-04-20] MEDS: SODIUM CHLORIDE 0.9% 1,000 ML IV SCH (01:28)
[2024-04-20] MEDS: traMADol 50 MG TAB PO PRN (01:32)
[2024-04-20 08:08] LABS: Glucose,Whole Blood 134 mg/dL (70-110)
[2024-04-20] MEDS: INSULIN LISPRO (HumaLOG) 100 UNIT/ML 10 mL VL SQ SCH ×2 (08:39→12:54)
[2024-04-20] MEDS: metFORMIN 500 MG TAB PO SCH (09:05)
--- NOTE | 2024-04-20 10:14 | CONS ---
CONSULTATION CHIEF COMPLAINT: Palpitations. HISTORY OF PRESENT ILLNESS: Galen is a 43-year-old gentleman with history of hypertension, ipm-sfmzsng-brhzfutfg diabetes, and dyslipidemia, who developed sudden-onset palpitations yesterday and came to the emergency room. He was found to be in atrial fibrillation with rapid ventricular rate with a heart rate of 144 beats per minute. He was given intravenous Cardizem and subsequently started on oral Cardizem. His heart rate became controlled and at the time of my evaluation, his heart rate is around 60 to 70 beats per minute. He is still in atrial fibrillation. There is no prior history of coronary artery disease or congestive heart failure. There is no history of valvular heart disease. The patient had an echocardiogram in 2020 that revealed normal LV systolic function with mild mitral and tricuspid regurgitation. A stress echo at that time revealed good exercise tolerance. Negative stress test by EKG criteria. Negative stress echo. The patient has multiple risk factors for stroke. He needs to be on long-term anticoagulation. He is on IV heparin and we will switch him to Eliquis depending upon what the insurance covers. I will obtain a 2D echo to evaluate his LV function. If heart rate stays controlled and he is asymptomatic, echocardiogram comes back okay, we might consider doing a PADMA cardioversion as outpatient. If the heart rate becomes poorly controlled, I may keep him here and consider cardioversion on this admission. PAST MEDICAL HISTORY: Significant for hypertension, diabetes, dyslipidemia. MEDICATIONS: Include, 1. Metformin 500 b.i.d. 2. Lisinopril 10 daily. 3. Omeprazole. 4. Celexa. 5. Lipitor. 6. Tylenol. ALLERGIES: There are no known drug allergies. FAMILY HISTORY: Negative for premature coronary artery disease. SOCIAL HISTORY: Negative for smoking, EtOH abuse, or drug abuse. REVIEW OF SYSTEMS: HEENT: Unremarkable. CARDIAC: As described above. RESPIRATORY: Negative. GI: Negative. GENITOURINARY: Negative. ALLERGY/IMMUNOLOGY: Negative. SKIN: Negative. MUSCULOSKELETAL: Negative. ENDOCRINE: Negative. DERMATOLOGIC: Negative. CONSTITUTIONAL: Negative. ONCOLOGICAL: Negative. RELOCATION DIRECTOR: Negative. Rest of the system review is not relevant. PHYSICAL EXAMINATION: GENERAL: Comfortable at rest. VITAL SIGNS: Stable. CHEST: Reveals good air entry bilaterally. HEART: Reveals first and second heart sounds, irregular rhythm. No murmur. ABDOMEN: Soft. EXTREMITIES: Did not reveal any edema. Peripheral pulses are felt. NECK: There is no jugular venous distention. Carotid upstroke is normal. There is no bruit. LABORATORY DATA: Show that the hemoglobin is 15.2, platelet count is 274. Potassium is 3.6 creatinine is 0.7. Troponin x4 is negative. BNP is normal. TSH is normal at 2.1. ASSESSMENT: 1. Persistent atrial fibrillation with controlled ventricular rate. 2. Llt-ufnmlmq-dwsfimbcf diabetes. 3. Hypertension. PLAN: I will switch the patient from heparin to Eliquis. Check an echocardiogram. Hopefully home tomorrow. MMODL / IJN: [id number] /
--- NOTE | 2024-04-20 10:19 | P.HPIM ---
History of Present Illness 43-year-old male came with complaints of palpitations found to be in atrial fibrillation with rapid unclear rate patient was started on Cardizem patient rate is controlled but still in atrial fibrillation patient is presently on oral Cardizem and metoprolol and on anticoagulation. Cardiology evaluated patient echocardiogram is being obtained patient denied any alcohol use denied any fever chills patient is not dehydrated no other significant abnormality was evident on the workup. REVIEW OF SYSTEMS: All other systems are negative except those mentioned in the HPI PHYSICAL EXAMINATION: GENERAL: The patient is alert and oriented x3, not in any acute distress. Well developed, well nourished. HEENT: Pupils are round and equally reacting to light. EOMI. No scleral icterus. No conjunctival pallor. Normocephalic, atraumatic. No pharyngeal erythema. No thyromegaly. CARDIOVASCULAR: S1 and S2 present. No murmurs, rubs, or gallops. Irregularly irregular rhythm PULMONARY: Chest is clear to auscultation, no wheezing or crackles. ABDOMEN: Soft, nontender, nondistended, normoactive bowel sounds. No palpable organomegaly. MUSCULOSKELETAL: No joint swelling or deformity. EXTREMITIES: No cyanosis, clubbing, or pedal edema. NEUROLOGICAL: Gross neurological examination did not reveal any focal deficits. SKIN: No rashes. Assessment and plan -New onset atrial fibrillation with rapid unclear rate continue with heparin patient is rate controlled continue with oral Cardizem and metoprolol echocardiogram will be obtained -Type 2 diabetes mellitus blood sugars with uncontrolled and elevated will obtain a hemoglobin A1c continue with metformin also sliding scale insulin. DVT prophylaxis: On anticoagulation with heparin Past Medical History Past Medical History: Hypertension Additional Past Medical History / Comment(s): pre diabetic. History of Any Multi-Drug Resistant Organisms: None Reported Additional Past Surgical History / Comment(s): umbilical hernia. Past Psychological History: Anxiety Smoking Status: Never smoker Past Alcohol Use History: None Reported Past Drug Use History: None Reported Medications and Allergies Home Medications Medication Instructions Recorded Confirmed Type Citalopram Hydrobromide [CeleXA] 40 mg PO DAILY 07/06/20 04/20/24 History Omeprazole 20 mg PO DAILY 07/06/20 04/20/24 History metFORMIN HCL [Glucophage] 500 mg PO BID 07/06/20 04/20/24 History Nitroglycerin Sl Tabs [Nitrostat] 0.4 mg SUBLINGUAL Q5M PRN #10 tab 07/07/20 04/20/24 Rx ALPRAZolam [Xanax] 0.25 mg PO TID PRN 04/20/24 04/20/24 History amLODIPine [Norvasc] 2.5 mg PO DAILY 04/20/24 04/20/24 History lisinopriL [Zestril] 20 mg PO DAILY 04/20/24 04/20/24 History Allergies Allergy/AdvReac Type Severity Reaction Status Date / Time No Known Allergies Allergy Verified 04/20/24 10:07 Physical Exam Vitals: Vital Signs Temp Pulse Resp BP Pulse Ox 04/20/24 09:09 64 18 112/91 96 04/20/24 05:14 62 17 106/77 95 04/20/24 04:25 71 15 105/81 95 04/20/24 02:10 73 16 116/80 95 04/20/24 01:09 93 18 109/74 96 04/20/24 00:49 96 16 126/92 96 04/20/24 00:15 82 18 142/87 95 04/20/24 00:00 86 15 136/88 94 L 04/19/24 23:51 92 15 136/88 96 04/19/24 23:27 101 H 18 125/87 92 L 04/19/24 22:50 97.0 F L 158 H 18 174/111 97 Intake and Output 04/19/24 04/20/24 04/20/24 22:59 06:59 14:59 Other: Weight 99.79 kg Results CBC & Chem 7: 04/19/24 23:26 04/19/24 23:26 Labs: Abnormal Lab Results - Last 24 Hours (Table) 04/19/24 04/20/24 04/20/24 Range/Units 23:26 06:45 08:03 APTT 34.1 H (22.0-30.0) sec Sodium 133 L (137-145) mmol/L Glucose 283 H (74-99) mg/dL POC Glucose (mg/dL) 134 H (70-110) mg/dL
[2024-04-20] MEDS: lisinopriL 20 MG TAB PO SCH (10:29)
[2024-04-20] MEDS: amLODIPine 2.5 MG TAB PO SCH (10:29)
[2024-04-20] MEDS: FAMOTIDINE 20 MG TAB PO SCH (10:31)
[2024-04-20] MEDS: CITALOPRAM HYDROBROMIDE 20 MG TAB PO SCH (10:31)
[2024-04-20] MEDS: PANTOPRAZOLE 40 MG TABLET PO SCH (10:31)
[2024-04-20] MEDS: METOPROLOL TARTRATE 25 MG TAB PO SCH (10:31)
[2024-04-20] MEDS: HEPARIN SODIUM 1,000 UN/ML (10ML VL) IV PRN (10:36)
[2024-04-20] MEDS: DILTIAZEM ORAL 30 MG TAB PO SCH (11:15)
[2024-04-20] MEDS: APIXABAN 5 MG TAB PO SCH (11:29)
[2024-04-20 12:50] LABS: Glucose,Whole Blood 123 mg/dL (70-110)
[2024-04-20 18:25] LABS: Glucose,Whole Blood 102 mg/dL (70-110)
[2024-04-20 20:28] LABS: Glucose,Whole Blood 164 mg/dL (70-110)
[2024-04-21 04:00] VITALS: TEMP 98.4
[2024-04-21 07:54] LABS: Glucose,Whole Blood 116 mg/dL (70-110)
[2024-04-21 08:14] VITALS: PULSE 78; RESP 20
[2024-04-21] MEDS: lisinopriL 10 MG TAB PO SCH (08:14)
--- NOTE | 2024-04-21 08:44 | CA ---
Transthoracic Echo Report Name: Galen Mcgrath Age: 43 Gender: M : 1980 Exam Date: 04/20/2024 14:47 Exam Location: [place] [facility] Ht (in): 74 Wt (lb): 220 Ordering Physician: Dori Gregory Attending/Referring Phys: [id number], [employer] Associate Armida Dill, RDCS Procedure CPT: Indications: LV function, new onset afib Cardiac Hx: Technical Quality: Fair Contrast 1: Total Dose (mL): Contrast 2: Total Dose (mL): MEASUREMENTS (Male / Female) Normal Values 2D ECHO LV Diastolic Volume MOD 4C 80.4 cm??? LV Systolic Volume MOD 4C 26.0 cm??? LV Ejection Fraction MOD 4C 67.7 % LV Cardiac Index MOD 4C 1774.2 cm???/min???m??? LV Diastolic Length 4C 7.3 cm LV Systolic Length 4C 6.2 cm M-MODE Aortic Root Diameter MM 3.5 cm LA Systolic Diameter MM 3.9 cm LA Ao Ratio MM 1.1 AV Cusp Separation MM 2.1 cm DOPPLER MV Area PHT 2.2 cm??? Mitral E Point Velocity 67.1 cm/s Mitral A Point Velocity 0.3 cm/s Mitral E to A Ratio 262.3 MV Deceleration Time 345.0 ms TR Peak Velocity 190.8 cm/s TR Peak Gradient 14.6 mmHg Right Ventricular Systolic Press 18.8 mmHg FINDINGS Left Ventricle Left ventricular ejection fraction is estimated at 50-55%. No obvious regional wall motion abnormalities. Left ventricular cavity size normal. Mildly reduced global left ventricular systolic function. Right Ventricle Mild right ventricular dilatation. Right ventricular systolic pressure within normal limits. Right Atrium Mild right atrial dilatation. Left Atrium Mild left atrial dilatation. Mitral Valve Structurally normal mitral valve. Mild mitral regurgitation. No mitral stenosis. Aortic Valve Trileaflet aortic valve. No aortic valve stenosis or regurgitation. Tricuspid Valve Structurally normal tricuspid valve. Mild tricuspid regurgitation. No tricuspid stenosis. Pulmonic Valve Structurally normal pulmonic valve. Trace pulmonic regurgitation. No pulmonic stenosis. Pericardium No pericardial or pleural effusion. Aorta Normal size aortic root and proximal ascending aorta. CONCLUSIONS LV EF 50-55% Mild RV dilatation Mild LA dilatation Mild MR Mild TR Previewed by: Dr. Manjinder Bey MD (Electronically Signed) Final Date: 21 April 2024 08:43
--- NOTE | 2024-04-21 09:20 | P.PN ---
Subjective HISTORY OF PRESENT ILLNESS: Patient examined this morning in the emergency room by Dr. Bey. Patient denies chest pain or pressure. He denies shortness of breath. He has converted to sinus mechanism. Echocardiogram completed revealing ejection fraction 50 to 55%, mild MR, mild TR. PHYSICAL EXAM: VITAL SIGNS: Reviewed. GENERAL: Well-developed in no acute distress. NECK: Supple. No JVD or thyromegaly LUNGS: Respirations even and unlabored. Lungs essentially clear to auscultation bilaterally. HEART: Regular rate and rhythm. S1 and S2 heard. EXTREMITIES: Normal range of motion. No clubbing or cyanosis. Peripheral pulses intact. No lower extremity edema ASSESSMENT: New onset paroxysmal atrial fibrillation with RVR, currently maintaining sinus mechanism Hypertension Diabetes PLAN: 2D echo obtained and reviewed Continue current cardiac medications including Eliquis, lisinopril, and metoprolol Patient may be discharged home today from a cardiac standpoint He is to follow-up in the office postdischarge with Dr. Bey in 2 to 3 weeks Nurse practitioner note has been reviewed by physician. Signing provider agrees with the documented findings, assessment, and plan of care documented by BREAD DOUGH M[employer]ER as a scribe. Objective - Vital Signs Vital signs: Vital Signs Temp 98.4 F 04/21/24 04:00 Pulse 78 04/21/24 08:00 Resp 20 04/21/24 08:00 BP 118/60 04/21/24 08:00 Pulse Ox 98 04/21/24 08:00 FiO2 Intake & Output 04/20/24 04/21/24 04/21/24 18:59 06:59 18:59 Intake Total 91.824 Balance 91.824 Intake: Intake, IV Titration 91.824 Amount Heparin Sod,Pork in 0.45% 91.824 NaCl 25,000 unit In 0.45 % NaCl 1 250ml.bag @ 10. 02 UNITS/KG/HR 9.999 mls/ hr IV .Q24H [facility] Rx#: [id number] - Labs CBC & Chem 7: 04/19/24 23:26 04/19/24 23:26 Labs: Abnormal Lab Results - Last 24 Hours (Table) 04/20/24 04/20/24 04/21/24 Range/Units 12:49 20:27 07:52 POC Glucose (mg/dL) 123 H 164 H 116 H (70-110) mg/dL
--- NOTE | 2024-04-21 09:30 | P.DS ---
Providers Date of admission: 04/20/24 01:10 Attending physician: Gutierrez Auguste Consults: 04/20/24 01:10 Consult Physician Routine Consulting Provider: Bradly Vasquez Consult Reason/Comments: new onset a fib Do you want consulting provider notified?: Yes, Notify in am Primary care physician: [facility] Course: 43-year-old male came with complaints of palpitations found to be in atrial fibrillation with rapid unclear rate patient was started on Cardizem patient rate is controlled but still in atrial fibrillation patient is presently on oral Cardizem and metoprolol and on anticoagulation. Cardiology evaluated patient echocardiogram is being obtained patient denied any alcohol use denied any fever chills patient is not dehydrated no other significant abnormality was evident on the workup. 04/21/2024 Patient converted to sinus rhythm patient was started on Eliquis cleared with cardiology patient echocardiogram showed normal ejection fraction. PHYSICAL EXAMINATION: GENERAL: The patient is alert and oriented x3, not in any acute distress. Well developed, well nourished. HEENT: Pupils are round and equally reacting to light. EOMI. No scleral icterus. No conjunctival pallor. Normocephalic, atraumatic. No pharyngeal erythema. No thyromegaly. CARDIOVASCULAR: S1 and S2 present. No murmurs, rubs, or gallops. Irregularly irregular rhythm PULMONARY: Chest is clear to auscultation, no wheezing or crackles. ABDOMEN: Soft, nontender, nondistended, normoactive bowel sounds. No palpable organomegaly. MUSCULOSKELETAL: No joint swelling or deformity. EXTREMITIES: No cyanosis, clubbing, or pedal edema. NEUROLOGICAL: Gross neurological examination did not reveal any focal deficits. SKIN: No rashes. Assessment and plan -New onset atrial fibrillation with rapid unclear rate continue with heparin patient is rate controlled continue with oral Cardizem and metoprolol echocardiogram will be obtained -Hypertension: Patient blood pressure is slightly lower as she was started on metoprolol, will discontinue Norvasc. -Prediabetes Patient Condition at Discharge: Stable Plan - Discharge Summary New Discharge Prescriptions: New Apixaban [Eliquis] 5 mg PO BID #30 tab Metoprolol Tartrate [Lopressor] 25 mg PO BID #60 tab Continue Nitroglycerin Sl Tabs [Nitrostat] 0.4 mg SUBLINGUAL Q5M PRN #10 tab PRN Reason: Chest Pain lisinopriL [Zestril] 20 mg PO DAILY metFORMIN HCL [Glucophage] 500 mg PO BID Citalopram Hydrobromide [CeleXA] 40 mg PO DAILY Omeprazole 20 mg PO DAILY ALPRAZolam [Xanax] 0.25 mg PO TID PRN PRN Reason: Anxiety Discontinued amLODIPine [Norvasc] 2.5 mg PO DAILY Discharge Medication List Citalopram Hydrobromide [CeleXA] 40 mg PO DAILY 07/06/20 [History] Omeprazole 20 mg PO DAILY 07/06/20 [History] metFORMIN HCL [Glucophage] 500 mg PO BID 07/06/20 [History] Nitroglycerin Sl Tabs [Nitrostat] 0.4 mg SUBLINGUAL Q5M PRN #10 tab 07/07/20 [Rx] ALPRAZolam [Xanax] 0.25 mg PO TID PRN 04/20/24 [History] lisinopriL [Zestril] 20 mg PO DAILY 04/20/24 [History] Apixaban [Eliquis] 5 mg PO BID #30 tab 04/21/24 [Rx] Metoprolol Tartrate [Lopressor] 25 mg PO BID #60 tab 04/21/24 [Rx] Follow up Appointment(s)/Referral(s): Maria Elena Talbert MD [STAFF PHYSICIAN] - 1 Week Manjinder Bey MD [STAFF PHYSICIAN] - 2 Weeks Discharge Disposition: HOME SELF-CARE
[2024-04-21 09:48] VITALS: BP 135/65
== END 2024-04-21 09:48 | disposition home or self-care (01) ==
LOC: EC 22:45 → 3SCARD 04-20 01:10 → 6NMEDSUR 04-20 03:39 → 3SCARD 04-20 04:24
PROVIDERS: ADMIT Internal Medicine; ATTEND Internal Medicine
DX: I48.19 Other persistent atrial fibrillation (principal); I10 Essential (primary) hypertension; E11.9 Type 2 diabetes mellitus without complications; I08.1 Rheumatic disorders of both mitral and tricuspid valves; E78.5 Hyperlipidemia, unspecified; Z79.84 Long term (current) use of oral hypoglycemic drugs; Z79.899 Other long term (current) drug therapy
CPT/HCPCS: 96376 ×2; 96365; 96366; 99291; 36415; 93005; 93306; 83880; 80053; 83735; 84443; 84484 ×2; 85025; 85610; 85730 ×2; 80306; 71046; G0378 ×2; J1644 ×2

== ENCOUNTER 2024-06-07 10:22 | Emergency (ER) | payer OTHER ==
[2024-06-07 10:28] VITALS: RESP 18; TEMP 98.4
--- NOTE | 2024-06-07 10:55 | ED ---
General Adult HPI - General Chief complaint: Arrhythmia/Palpitations Stated complaint: Heart Palp Time Seen by Provider: 06/07/24 10:26 Source: patient, EMS, RN notes reviewed Mode of arrival: EMS Limitations: no limitations - History of Present Illness Initial comments: Patient is a 43-year-old male presents emergency department with concern with palpitations. Patient was diagnosed with A-fib a month ago. The last several days patient has had heart rate up to 130 or 140 off of his Apple Watch. No alarm for A-fib however patient is unclear if that alarms automatically or not. Patient states blood pressure was up during this time. Patient is unclear if he may be a little bit nervous at these times. Patient does have a high stress job. Currently patient is symptom-free. No chest pain. - Related Data Home Medications Medication Instructions Recorded Confirmed Citalopram Hydrobromide [CeleXA] 40 mg PO DAILY 07/06/20 04/20/24 Omeprazole 20 mg PO DAILY 07/06/20 04/20/24 metFORMIN HCL [Glucophage] 500 mg PO BID 07/06/20 04/20/24 ALPRAZolam [Xanax] 0.25 mg PO TID PRN 04/20/24 04/20/24 lisinopriL [Zestril] 20 mg PO DAILY 04/20/24 04/20/24 Previous Rx's Medication Instructions Recorded Nitroglycerin Sl Tabs [Nitrostat] 0.4 mg SUBLINGUAL Q5M PRN #10 tab 07/07/20 Apixaban [Eliquis] 5 mg PO BID #30 tab 04/21/24 Metoprolol Tartrate [Lopressor] 25 mg PO BID #60 tab 04/21/24 Allergies Allergy/AdvReac Type Severity Reaction Status Date / Time No Known Allergies Allergy Verified 06/07/24 10:29 Review of Systems ROS Statement: Those systems with pertinent positive or pertinent negative responses have been documented in the HPI. ROS Other: All systems not noted in ROS Statement are negative. Constitutional: Denies: fever Eyes: Denies: eye pain ENT: Denies: ear pain Respiratory: Denies: dyspnea Cardiovascular: Reports: as per HPI. Denies: chest pain Endocrine: Denies: fatigue Gastrointestinal: Denies: abdominal pain Past Medical History Past Medical History: Atrial Fibrillation, Hypertension Additional Past Medical History / Comment(s): pre diabetic. History of Any Multi-Drug Resistant Organisms: None Reported Additional Past Surgical History / Comment(s): umbilical hernia. Past Psychological History: Anxiety Smoking Status: Never smoker Past Alcohol Use History: None Reported Past Drug Use History: None Reported General Exam Limitations: no limitations General appearance: alert, in no apparent distress Head exam: Present: normocephalic Eye exam: Present: normal appearance Neck exam: Present: normal inspection Respiratory exam: Present: normal lung sounds bilaterally Cardiovascular Exam: Present: regular rate, normal rhythm, normal heart sounds Expanded Peripheral pulses: 2+: Radial (R), Radial (L) GI/Abdominal exam: Present: soft. Absent: tenderness Extremities exam: Present: normal inspection. Absent: pedal edema, calf tenderness Neurological exam: Present: alert Psychiatric exam: Present: normal affect, normal mood Skin exam: Present: normal color Course Vital Signs 06/07/24 06/07/24 10:23 11:53 Temperature 98.4 F Pulse Rate 56 L 53 L Respiratory 18 18 Rate Blood Pressure 162/100 156/94 O2 Sat by Pulse 97 97 Oximetry EKG Findings - EKG Results: EKG: interpreted by ERMD, sinus rhythm, normal axis, normal QRS, normal ST/T EKG shows: bradycardia Medical Decision Making - Medical Decision Making Was pt. sent in by a medical professional or institution ([facility], W[employer] HOST/HOSTESS, urgent care, hospital, or half-way...) When possible be specific @ -No Did you speak to anyone other than the patient for history (EMS, parent, family, police, friend...)? What history was obtained from this source @ -No Did you review nursing and triage notes (agree or disagree)? Why? @ -I reviewed and agree with nursing and triage notes Were old charts reviewed (outside hosp., previous admission, EMS record, old EKG, old radiological studies, urgent care reports/EKG's, half-way records)? Report findings @ -No old charts were reviewed Differential Diagnosis (chest pain, altered mental status, abdominal pain women, abdominal pain men, vaginal bleeding, weakness, fever, dyspnea, syncope, headache, dizziness, GI bleed, back pain, seizure, CVA, palpatations, mental health, musculoskeletal)? @ -Differential Palpitations Ventricular arrhythmias, atrial arrhythmias, myocardial infarction, anemia, thyrotoxicosis, electrolyte imbalance, hypokalemia, pulmonary embolism, pulmo nary disease, drugs, alcohol, anxiety, stress.... This is not meant to be an all-inclusive list. EKG interpreted by me (3pts min.). @ -As above X-rays interpreted by me (1pt min.). @ -Chest x-ray shows no acute process CT interpreted by me (1pt min.). @ -None done U/S interpreted by me (1pt. min.). @ -None done What testing was considered but not performed or refused? (CT, X-rays, U/S, labs)? Why? @ -None What meds were considered but not given or refused? Why? @ -None Did you discuss the management of the patient with other professionals (professionals i.e. , PA, WEL[employer] HOST/HOSTESS, lab, RT, psych nurse, social service technician, bariatric coordinator, teacher, state wildlife officer, home health care case manager)? Give summary @ -At request of patient case was discussed with Dr. Hernandez. Dr. Hernandez says he is tied up at this time and cannot evaluate patient emergency department. He does recommend follow-up in the office. This was relayed to the patient Was smoking cessation discussed for >3mins.? @ -No Was critical care preformed (if so, how long)? @ -No Were there social determinants of health that impacted care today? How? (Homelessness, low income, unemployed, alcoholism, drug addiction, transportation, low edu. Level, literacy, decrease access to med. care, prison, rehab)? @ -No Was there de-escalation of care discussed even if they declined (Discuss DNR or withdrawal of care, Hospice)? DNR status @ -No What co-morbidities impacted this encounter? (DM, HTN, Smoking, COPD, CAD, Cancer, CVA, ARF, Chemo, Hep., AIDS, mental health diagnosis, sleep apnea, morbid obesity)? @ -History of A-fib Was patient admitted / discharged? Hospital course, mention meds given and route, prescriptions, significant lab abnormalities, going to OR and other pertinent info. @ -Patient presents with several episodes of tachycardia. Patient remains in sinus rhythm in the emergency department and symptom-free. Evaluation otherwise unremarkable. Patient will be discharged with follow-up cardiology. Undiagnosed new problem with uncertain prognosis? @ -No Drug Therapy requiring intensive monitoring for toxicity (Heparin, Nitro, Insulin, Cardizem)? @ -No Were any procedures done? @ -No Diagnosis/symptom? @ -Tachycardia episode Acute, or Chronic, or Acute on Chronic? @ -Acute Uncomplicated (without systemic symptoms) or Complicated (systemic symptoms)? @ -Default Side effects of treatment? @ -No Exacerbation, Progression, or Severe Exacerbation? @ -No Poses a threat to life or bodily function? How? (Chest pain, [place], [place], pneumonia, PE, COPD, DKA, ARF, appy, cholecystitis, CVA, Diverticulitis, Homicidal, Suicidal, threat to staff... and all critical care pts) @ -No - Lab Data Result diagrams: 06/07/24 10:55 06/07/24 10:55 Lab Results 06/07/24 06/07/24 06/07/24 Range/Units 10:55 10:55 10:55 WBC 6.62 (4.50-10.00) 10*3/uL RBC 4.77 (4.40-5.60) 10*6/uL Hgb 15.4 (13.0-17.0) g/dL Hct 43.2 (39.6-50.0) % MCV 90.6 (80.0-97.0) fL MCH 32.3 H (27.0-32.0) pg MCHC 35.6 (32.0-37.0) g/dL Plt Count 281 (140-440) 10*3/uL MPV 9.7 (9.5-12.2) fL Immature Gran % (Auto) 0.5 % Neutrophils % 69.4 % Lymphocytes % 21.3 % Monocytes % 8.0 % Eosinophils % 0.3 % Basophils % 0.5 % Immature Gran # 0.03 (0.00-0.04) 10*3/uL Neutrophils # 4.60 (1.80-7.70) 10*3/uL Lymphocytes # 1.41 (0.90-5.00) 10*3/uL Monocytes # 0.53 (0.20-1.00) 10*3/uL Eosinophils # 0.02 L (0.04-0.35) 10*3/uL Basophils # 0.03 (0.00-0.10) 10*3/uL PT 10.6 (10.0-12.5) sec INR 1.0 (<1.2) APTT 24.9 (22.0-30.0) sec Sodium 137 (137-145) mmol/L Potassium 4.3 (3.5-5.1) mmol/L Chloride 98 (98-107) mmol/L Carbon Dioxide 27 (22-30) mmol/L Anion Gap 12 mmol/L BUN 17 (9-20) mg/dL Creatinine 0.69 (0.66-1.25) mg/dL Est GFR (CKD-EPI)AfAm >90 (>60 ml/min/1.73 sqM) Est GFR (CKD-EPI)NonAf >90 (>60 ml/min/1.73 sqM) Glucose 131 H (74-99) mg/dL Calcium 9.5 (8.4-10.2) mg/dL Magnesium 1.8 (1.6-2.3) mg/dL Total Bilirubin 0.7 (0.2-1.3) mg/dL AST 27 (17-59) U/L ALT 37 (4-49) U/L Alkaline Phosphatase 49 (38-126) U/L Troponin I (0.000-0.034) ng/mL Total Protein 7.2 (6.3-8.2) g/dL Albumin 4.6 (3.5-5.0) g/dL TSH 1.020 (0.465-4.680) mIU/L Free T4 1.05 (0.78-2.19) ng/dL 06/07/24 Range/Units 10:55 WBC (4.50-10.00) 10*3/uL RBC (4.40-5.60) 10*6/uL Hgb (13.0-17.0) g/dL Hct (39.6-50.0) % MCV (80.0-97.0) fL MCH (27.0-32.0) pg MCHC (32.0-37.0) g/dL Plt Count (140-440) 10*3/uL MPV (9.5-12.2) fL Immature Gran % (Auto) % Neutrophils % % Lymphocytes % % Monocytes % % Eosinophils % % Basophils % % Immature Gran # (0.00-0.04) 10*3/uL Neutrophils # (1.80-7.70) 10*3/uL Lymphocytes # (0.90-5.00) 10*3/uL Monocytes # (0.20-1.00) 10*3/uL Eosinophils # (0.04-0.35) 10*3/uL Basophils # (0.00-0.10) 10*3/uL PT (10.0-12.5) sec INR (<1.2) APTT (22.0-30.0) sec Sodium (137-145) mmol/L Potassium (3.5-5.1) mmol/L Chloride (98-107) mmol/L Carbon Dioxide (22-30) mmol/L Anion Gap mmol/L BUN (9-20) mg/dL Creatinine (0.66-1.25) mg/dL Est GFR (CKD-EPI)AfAm (>60 ml/min/1.73 sqM) Est GFR (CKD-EPI)NonAf (>60 ml/min/1.73 sqM) Glucose (74-99) mg/dL Calcium (8.4-10.2) mg/dL Magnesium (1.6-2.3) mg/dL Total Bilirubin (0.2-1.3) mg/dL AST (17-59) U/L ALT (4-49) U/L Alkaline Phosphatase (38-126) U/L Troponin I <0.012 (0.000-0.034) ng/mL Total Protein (6.3-8.2) g/dL Albumin (3.5-5.0) g/dL TSH (0.465-4.680) mIU/L Free T4 (0.78-2.19) ng/dL Disposition Clinical Impression: Tachycardia Disposition: HOME SELF-CARE Condition: Stable Instructions (If sedation given, give patient instructions): Heart Palpitations (ED) Additional Instructions: Please do follow-up with motion graphics artist and primary care physician beginning of the week. Consider echo. Consider Holter monitor. Return for increased heart rate, chest pain, difficulty breathing, worsening or changing symptoms or other concerns. Is patient prescribed a controlled substance at d/c from ED?: No Referrals: Alonso Francisco MD [Primary Care Provider] - 1-2 days Manjinder Bey MD [STAFF PHYSICIAN] - 1-2 days Time of Disposition: 12:58
--- NOTE | 2024-06-07 11:09 | XR ---
EXAMINATION TYPE: XR chest 2V DATE OF EXAM: 06/07/2024 11:03 AM COMPARISON: 04/19/2024 CLINICAL INDICATION: Male, 43 years old with history of dysrhythmia, , TECHNIQUE: PA and lateral views FINDINGS: The cardiomediastinal silhouette, aorta, and pulmonary vasculature are within normal limits. Mild hyp erinflation. Lungs and pleural spaces are clear. IMPRESSION: Mild hyperinflation may relate to depth of inspiration or underlying emphysema. Otherwise, no acute c ardiopulmonary process. [facility], Workstation: [email or web address], 06/07/2024 11:06 AM
[2024-06-07 11:19] LABS: Basophils # (A) 0.03 10*3/uL (0.00-0.10); Basophils % (A) 0.5 %; Eosinophils # (A) 0.02 10*3/uL (0.04-0.35); Eosinophils % (A) 0.3 %; HCT 43.2 % (39.6-50.0); HGB 15.4 g/dL (13.0-17.0); Lymphocytes # (A) 1.41 10*3/uL (0.90-5.00); Lymphocytes % (A) 21.3 %; MCH 32.3 pg (27.0-32.0); MCHC 35.6 g/dL (32.0-37.0); MCV 90.6 fL (80.0-97.0); Mean Platelet Volume 9.7 fL (9.5-12.2); Monocytes # (A) 0.53 10*3/uL (0.20-1.00); Neutrophils % (A) 69.4 %; Platelet Count 281 10*3/uL (140-440); RBC 4.77 10*6/uL (4.40-5.60); RDW 12.9 % (11.5-14.5); WBC 6.62 10*3/uL (4.50-10.00)
[2024-06-07 11:32] LABS: ALT 37 U/L (4-49); AST 27 U/L (17-59); African American GFR (CKD) >90 (>60 ml/min/1.73 sqM); Albumin 4.6 g/dL (3.5-5.0); Alkaline Phosphatase 49 U/L (38-126); Anion Gap 12 mmol/L; Blood Urea Nitrogen 17 mg/dL (9-20); Calcium 9.5 mg/dL (8.4-10.2); Carbon Dioxide 27 mmol/L (22-30); Chloride 98 mmol/L (98-107); Glucose 131 mg/dL (74-99); Magnesium 1.8 mg/dL (1.6-2.3); Non-African American GFR(CKD) >90 (>60 ml/min/1.73 sqM); Potassium 4.3 mmol/L (3.5-5.1); Sodium 137 mmol/L (137-145); Total Bilirubin 0.7 mg/dL (0.2-1.3); Total Protein 7.2 g/dL (6.3-8.2)
[2024-06-07 11:48] LABS: T4, Free (Free Thyroxine) 1.05 ng/dL (0.78-2.19)
[2024-06-07 11:54] VITALS: PULSE 53
[2024-06-07 12:09] LABS: Partial Thromboplastin Time 24.9 sec (22.0-30.0); Prothrombin Time 10.6 sec (10.0-12.5)
[2024-06-07 13:18] VITALS: BP 146/94
== END 2024-06-07 13:18 | disposition home or self-care (01) ==
LOC: EC 10:22
DX: R00.0 Tachycardia, unspecified (principal); I48.91 Unspecified atrial fibrillation; Z56.6 Other physical and mental strain related to work
CPT/HCPCS: 36415; 71046; 80053; 83735; 84439; 84443; 84481; 84484; 85025; 85610; 85730; 93005; 99285